=== PATIENT | female | born 1950 | race Caucasian/White ===

== ENCOUNTER → 2016-08-27 | Outpatient (CLI) | payer MEDICARE, OTHER ==
--- NOTE | 2016-08-28 14:02 | REP ---
NUCLEAR THYROID UPTAKE AND SCAN: Following the oral administration of 464 microcuries of iodine 123 as sodium iodine, thyroid uptake is measured. The 24-hour uptake is normal at 30.4%. Thyroid scan shows both lobes of the thyroid to measure between 5 and 6 cm in length. No focal hot or cold nodule is seen. Recent ultrasound 07/24/2016 at [facility] suggested a small nodule in the mid to lower right lobe of the thyroid. Recommend either fine needle aspiration or followup ultrasound in 3 to 6 months. Signed by Moe Lux MD 08/28/2016 03:23 P
== END ==
LOC: M RAD 12:13
PROVIDERS: ATTEND Internal Medicine
DX: E04.1 Nontoxic single thyroid nodule (principal)
CPT/HCPCS: 78012; A9516

== ENCOUNTER → 2017-12-29 | Outpatient (REF) | payer MEDICARE, OTHER ==
[2017-12-29 12:49] LABS: IRON (FE) 71 UG/DL (50-170); PERCENT SATURATION 21.2 % (13.2-45.0); TOTAL IRON BINDING CAPACITY 335 UG/DL (250-450)
== END ==
LOC: M LAB REF 11:54
DX: K62.5 Hemorrhage of anus and rectum (principal)
CPT/HCPCS: 83550

== ENCOUNTER 2018-02-11 10:17 | Day surgery (SDC) | payer MEDICARE, OTHER ==
[2018-02-11] MEDS: NS 1,000 ML IV (10:47)
[2018-02-11] MEDS ORDERED: PROPOFOL 200 MG/20 ML VIAL As Ordered ×2 (11:33→11:45)
[2018-02-11] MEDS ORDERED: LIDOCAINE 2% INJ 100 MG/5 ML SDV (FOR ANES.) As Ordered (11:33)
== END 2018-02-11 12:17 | disposition home or self-care (01) ==
LOC: M OPP 10:17
DX: Z12.11 Encounter for screening for malignant neoplasm of colon (principal); F41.9 Anxiety disorder, unspecified; Z78.0 Asymptomatic menopausal state
CPT/HCPCS: G0121

== ENCOUNTER → 2020-08-14 | Outpatient (CLI) | payer SELFPAY ==
[~2020-08-14] MED LIST: MULT1TAB10 PO
== END ==
LOC: M LABSMTC 13:56
PROVIDERS: ATTEND Pediatrics
DX: Z20.828 Contact with and (suspected) exposure to other viral communicable diseases (principal)

== ENCOUNTER → 2020-09-02 | Outpatient (CLI) | payer SELFPAY | LOC: M LABSMTC 08:35 | PROVIDERS: ATTEND Pediatrics | DX: Z20.822 Contact with and (suspected) exposure to COVID-19 (principal) ==

== ENCOUNTER → 2021-01-01 | Outpatient (CLI) | payer MEDICARE, OTHER ==
--- NOTE | 2021-01-01 15:42 | REP ---
INDICATION: THYROID NODULES. COMPARISON: 01/10/2019 TECHNIQUE: Performed the same fashion as the prior exam FINDINGS: The right lobe of the thyroid gland measures 5.1 x 1.6 x 1.2 cm the left lobe measures 4.3 x 1.5 x 1.5 cm. The isthmus measures 2 mm. In the right lobe of the thyroid gland there is an unchanged 1 cm sized solid nodule slightly complex in appearance. The smaller nodule seen on the prior exam is not seen today. Once again, no abnormalities are seen on the left. IMPRESSION: No significant change compared to the prior exam. <Electronically signed by Moses Burks > 01/01/21 0713
== END ==
LOC: M RAD 15:06
PROVIDERS: ATTEND Internal Medicine
DX: E04.1 Nontoxic single thyroid nodule (principal)

== ENCOUNTER → 2023-01-21 | Outpatient (CLI) | payer MEDICARE, OTHER ==
[~2023-01-21] MED LIST changes: +ISOVUE-370 76% 100ML VIAL As Ordered ONE
== END ==
LOC: M RAD 08:15
PROVIDERS: ATTEND Internal Medicine
DX: I89.0 Lymphedema, not elsewhere classified (principal)
CPT/HCPCS: 70491; Q9967

== ENCOUNTER 2024-12-20 10:22 | Emergency (ER) | payer MEDICARE, OTHER ==
[~2024-12-20] VITALS: Ht 160 cm; Wt 75.8 kg
[~2024-12-20 10:22] MED LIST changes: -ISOVUE-370 76% 100ML VIAL As Ordered ONE
[2024-12-20] MEDS ORDERED: OMEP-173 (10:36)
[2024-12-20] MEDS: ACETAMINOPHEN 325 MG TAB PO ONE (11:11)
[2024-12-20] MEDS ORDERED: HYDR-4571 PO (11:43)
[2024-12-20 11:47] VITALS: BP 118/76; TEMP 97.2; O2SAT 100
== END 2024-12-20 11:57 | disposition home or self-care (01) ==
LOC: M ED 10:22
DX: S52.552A Other extraarticular fracture of lower end of left radius, initial encounter for closed fracture (principal); S52.612A Displaced fracture of left ulna styloid process, initial encounter for closed fracture; Y92.39 Other specified sports and athletic area as the place of occurrence of the external cause; Y93.9 Activity, unspecified; Y99.9 Unspecified external cause status; W01.0XXA Fall on same level from slipping, tripping and stumbling without subsequent striking against object, initial encounter; Z79.899 Other long term (current) drug therapy; Z79.810 Long term (current) use of selective estrogen receptor modulators (SERMs)

== ENCOUNTER → 2024-12-26 | Outpatient (CLI) | payer MEDICARE, OTHER ==
[~2024-12-26] MED LIST changes: +HYDR-4571 PO; +OMEP-173
== END ==
LOC: M EKG 11:13
PROVIDERS: ATTEND Orthopaedic Surgery
DX: Z01.818 Encounter for other preprocedural examination (principal); S52.572D Other intraarticular fracture of lower end of left radius, subsequent encounter for closed fracture with routine healing